=== PATIENT | female | born 2000 | race American Indian/Alaskan Native ===

== ENCOUNTER 2021-05-25 16:07 | Emergency (ER) | payer OTHER ==
[2021-05-25] MEDS ORDERED: ONDANSETRON ODT8 MG PO (19:21)
== END 2021-05-25 19:35 | disposition home or self-care (01) ==
LOC: ED 16:07
DX: S06.0X9A Concussion with loss of consciousness of unspecified duration, initial encounter (principal); R56.9 Unspecified convulsions; V80.010A Animal-rider injured by fall from or being thrown from horse in noncollision accident, initial encounter
CPT/HCPCS: 70450; 71260; 72125; 74177; 80048; 80053; 81001; 82803; 84703; 85025; 99285-25; G0480; J2405; J7121; Q9967